=== PATIENT | female | born 1970 | race Caucasian/White ===

== ENCOUNTER 2016-04-25 08:54 | Emergency (ER) | payer SELFPAY ==
[~2016-04-25] VITALS: Ht 162.6 cm; Wt 72.6 kg
[2016-04-25] MEDS ORDERED: LORazepam 1mg tab ORAL ONE (09:15)
[2016-04-25 09:50] VITALS: BP 129/97
--- NOTE | 2016-04-26 14:17 | Emergency Room Report ---
History of Present Illness General Chief Complaint: Behavioral Complaint Source: Patient Present Illness HPI Patient is a 46-year-old female brought in by ambulance for increased agitation after using methamphetamine. Patient was noted to have been somewhat anxious. Patient had used methamphetamine in the past few days. Patient denied any suicidal thoughts or auditory hallucinations. She states that she previously been on psychiatric medications. Allergies: Coded Allergies: ARIPIPRAZOLE (Unverified Allergy, Unknown, 04/25/16) CYCLOBENZAPRINE (Unverified Allergy, Unknown, 04/25/16) Uncoded Allergies: ABILIFY (Allergy, Unknown, 04/25/16) FLEXERIL (Allergy, Unknown, 04/25/16) Patient History Past Medical History: see triage record Last Menstrual Period: 04/12/16 Now: No Reviewed Nursing Documentation: PMH: Agreed, PSxH: Agreed Nursing Documentation-PMH Past Medical History: No History, Except For History Of Psychiatric Problem: Yes - bipolar Review of Systems All Other Systems: negative except mentioned in HPI Physical Exam Vital Signs Date Time Temp Pulse Resp B/P Pulse Ox O2 Delivery O2 Flow Rate FiO2 04/25/16 08:49 98.2 92 18 129/97 100 Room Air General Appearance: well appearing, no apparent distress, alert, GCS 15 Head: normocephalic, atraumatic ENT: hearing grossly normal, normal voice Neck: full range of motion, supple Respiratory: lungs clear, normal breath sounds, no respiratory distress, speaking full sentences Cardiovascular #1: normal inspection, regular rate, rhythm Gastrointestinal: normal inspection, non tender, soft Musculoskeletal: normal inspection, no calf tenderness Neurologic: normal inspection, alert, oriented x3, normal gait Psychiatric: mood/affect normal Skin: no rash Medical Decision Making Diagnostic Impression: Primary Impression: Substance abuse ER Course Patient presented for agitation. Differential diagnoses include substance abuse , psychosis, bipolar disorder, depression, malingering. Patient's benign exam and does not appear to require any further imaging or laboratory testing at this time. Medications order to help calm the patient down. The patient refused medications. She subsequently eloped without notifying staff. The patient did not appear to require psychiatric hospitalization. Last Vital Signs Date Time Temp Pulse Resp B/P Pulse Ox O2 Delivery O2 Flow Rate FiO2 04/25/16 09:50 98.2 92 18 129/97 100 Room Air Status: unchanged Disposition: ELOPED Condition: Unknown Referrals: NOT CHOSEN IPA/,REFERRING (PCP) Willy Amador Apr 26, 2016 14:17
== END 2016-04-25 09:30 | disposition left against medical advice (07) ==
LOC: EDBD 08:54 → EMR 09:21
DX: F19.10 Other psychoactive substance abuse, uncomplicated (principal); Z88.8 Allergy status to other drugs, medicaments and biological substances; Z86.59 Personal history of other mental and behavioral disorders
CPT/HCPCS: 96372; 99284

== ENCOUNTER 2016-11-05 01:00 | Emergency (ER) | payer OTHER ==
[~2016-11-05] VITALS: Ht 167.6 cm; Wt 84.4 kg
[2016-11-05 01:05] VITALS: BP 150/98
[2016-11-05] MEDS ORDERED: SEROQUEL100 MG ORAL (01:05)
[2016-11-05] MEDS ORDERED: FERROUS SULFAT325 MG ORAL (01:06)
[2016-11-05] MEDS ORDERED: HYDROCORTISONE-30 GM TOPIC (01:06)
[2016-11-05] MEDS ORDERED: FOLIC ACID1 MG ORAL (01:06)
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
[2016-11-05] MEDS ORDERED: Methocarbamol 750mg tab ORAL ONE (02:30)
[2016-11-05 03:15] VITALS: BP 144/75
[2016-11-05] MEDS ORDERED: ROBAXIN-750750 MG PO (04:58)
[2016-11-05] MEDS ORDERED: IBUPROFEN600 MG ORAL (04:58)
[2016-11-05 05:50] VITALS: BP 144/75
--- NOTE | 2016-11-05 11:35 | Diagnostic Imaging Report ---
Indication: Pain Comparison: None Findings AP lateral and coned-down views of the lumbar spine are obtained. There are no acute fractures or subluxations. Alignment is intact. Degenerative changes with tear marginal osteophytes and disc space narrowing is noted from L3-S1. Bony mineralization is normal. No bony destructive lesions are seen. There is slight rotoscoliosis which may be positional. Impression: No acute fractures or subluxations the lumbar spine Mild to moderate degenerative changes.
--- NOTE | 2016-11-05 11:45 | Diagnostic Imaging Report ---
Indication: Pain Comparison: None Technique: Contiguous helical CT images through the brain was performed without intravenous contrast. Axial, coronal and sagittal reconstructions were reformatted. CT dose: Total DLP 1340 mGycm, CTDI volume 70.4 mGy Findings: There is no acute intracranial hemorrhage or infarct. No mass, mass effect or midline shift is identified. Ventricles and sulci are within normal limits. No extra-axial fluid collections are seen. Bony calvarium is intact. Mastoid air cells and visualized paranasal sinuses are clear. Impression: No acute intracranial abnormalities. The CT scanner at [facility] is accredited by the [employer] and the scans are performed using protocols designed to limit radiation exposure to as low as reasonably achievable to attain images of sufficient resolution adequate for diagnostic evaluation.
== END 2016-11-05 05:53 | disposition home or self-care (01) ==
LOC: EDBD 01:00 → EMR 02:00
DX: M54.5 Low back pain (principal); V19.9XXA Pedal cyclist (driver) (passenger) injured in unspecified traffic accident, initial encounter; Y93.9 Activity, unspecified; Y99.9 Unspecified external cause status; Z88.8 Allergy status to other drugs, medicaments and biological substances; B19.20 Unspecified viral hepatitis C without hepatic coma
CPT/HCPCS: 70450; 72020; 99284